=== PATIENT | female | born 1935 | race Caucasian/White ===

== ENCOUNTER 2016-10-22 20:36 | Emergency (ER) | payer MEDICARE, OTHER ==
[2016-10-22 22:43] LABS: BASOPHIL 0.1 % (0-2); EOSINOPHIL 0.3 % (0-7); HCT 37.9 % (37.0-47.0); HGB 12.4 g/dl (12.5-16.0); LYMPHOCYTE 9.6 % (15-48); MCHC 32.7 g/dL (32.0-36.0); MCV 85.6 fL (78.0-100.0); MONOCYTE 7.3 % (0-12); MPV 9.9 fL (6.0-9.5); NEUTROPHIL 82.7 % (41-80); PLT 235 K/uL (150-400); RBC 4.43 M/uL (4.20-5.40); RDW 14.9 % (11.5-14.0); WBC 14.8 K/uL (4.0-10.5)
[2016-10-22 23:03] LABS: ALBUMIN 4.5 g/dL (3.4-4.8); BILIRUBIN - TOTAL 0.2 mg/dL (0.1-1.0); CREATININE 1.2 mg/dL (0.5-1.0); GLOBULIN (CALCULATION) 2.8 g/dL (2.2-4.2); POTASSIUM 4.6 mmol/L (3.5-5.1); TOTAL PROTEIN 7.3 g/dL (6.4-8.3)
== END 2016-10-23 03:10 | disposition other institution (70) ==
LOC: FER 20:36
PROVIDERS: Emergency Medicine Emergency Medical Services
DX: S22.41XA Multiple fractures of ribs, right side, initial encounter for closed fracture (principal); E86.9 Volume depletion, unspecified; I10 Essential (primary) hypertension; E11.9 Type 2 diabetes mellitus without complications; Z86.73 Personal history of transient ischemic attack (TIA), and cerebral infarction without residual deficits; Z87.440 Personal history of urinary (tract) infections; Z87.442 Personal history of urinary calculi; Z88.0 Allergy status to penicillin; Z88.2 Allergy status to sulfonamides; Z79.84 Long term (current) use of oral hypoglycemic drugs; Z79.899 Other long term (current) drug therapy; W18.39XA Other fall on same level, initial encounter; Y92.009 Unspecified place in unspecified non-institutional (private) residence as the place of occurrence of the external cause
CPT/HCPCS: 36415; 70450; 71020; 71250; 80053; 82550; 82553; 84484; 85025; 93005; J1170; J1885; J2270; J2405; J2930